=== PATIENT | female | born 1965 | race Caucasian/White ===

== ENCOUNTER 2019-05-26 12:37 | Emergency (ER) | payer BC ==
[~2019-05-26] VITALS: Ht 160 cm; Wt 95.2 kg
[~2019-05-26 12:37] MED LIST: CETI5 PO; LEVSOD75 PO; NASAL SPRAY30 ML INH; OMEP20ER PO; TERB24TC TOP; TOLT4 PO; [UNRECOGNIZED DRUG - OTHER]
[2019-05-26 13:19] LABS: BASOPHILS ABSOLUTE AUTO 0.03 K/mm3 (0.00-0.23); BASOPHILS PERCENT AUTO 0 % (0-2); EOSINOPHILS ABSOLUTE AUTO 0.01 K/mm3 (0.00-0.68); EOSINOPHILS PERCENT AUTO 0 % (0-6); Hemoglobin 14.1 g/dL (11.5-16.0); IMMATURE GRAN ABSOLUTE AUTO 0.02 K/mm3 (0.00-0.10); IMMATURE GRAN PERCENT AUTO 0 % (0-1); LYMPHOCYTES ABSOLUTE AUTO 1.97 K/mm3 (0.84-5.20); LYMPHOCYTES PERCENT AUTO 22 % (21-46); MONOCYTES ABSOLUTE AUTO 0.58 K/mm3 (0.16-1.47); MONOCYTES PERCENT AUTO 7 % (4-13); Mean Corpuscular HGB 31.3 pg (26.0-34.0); Mean Corpuscular HGB Conc 32.8 g/dL (31.5-36.5); Mean Corpuscular Volume 96 fL (80-100); Mean Platelet Volume 10.9 fL (9.1-12.4); NEUTROPHILS ABSOLUTE AUTO 6.29 K/mm3 (1.96-9.15); NEUTROPHILS PERCENT AUTO 71 % (41-73); Platelet Count 289 K/mm3 (150-400); RDW Coefficient Variation 12.5 % (11.7-14.2); RDW Standard Deviation 43.4 fL (35.1-46.3)
[2019-05-26 13:46] LABS: Free Thyroxine 1.41 ng/dL (0.70-1.60)
[2019-05-26 13:59] LABS: Alanine Aminotransfer (ALT/SGP 36 U/L (12-78); Albumin, Blood 3.7 g/dL (3.4-5.0); Albumin/Globulin Ratio 0.9 (0.8-1.8); Alk Phos 70 U/L (50-136); Anion Gap 7 mmol/L (6-16); Aspartate Aminotrans (AST/SGOT 14 U/L (12-37); Bilirubin, Total 0.9 mg/dL (0.1-1.0); Blood Urea Nitrogen 10 mg/dL (8-24); Bun/Creatinine Ratio 14.1 (12.0-20.0); CO2, Blood 25 mmol/L (21-32); Calcium, Blood 8.9 mg/dL (8.5-10.1); Chloride, Blood 110 mmol/L (98-108); Creatinine, Blood 0.71 mg/dL (0.40-1.00); Globulin, Blood 3.9 g/dL (2.2-4.0); Glomerular Filtration Rate >60 (60-); Glucose, Blood 109 mg/dL (70-99); Sodium, Blood 142 mmol/L (136-145); Total Protein, Blood 7.6 g/dL (6.4-8.2); Triiodothyronine, Free 2.77 pg/mL (2.18-3.98)
[2019-05-26] MEDS ORDERED: Vistaril25 MG PO (16:29)
== END 2019-05-26 16:41 | disposition home or self-care (01) ==
LOC: ER 12:37
PROVIDERS: Physician Assistant
DX: F41.9 Anxiety disorder, unspecified (principal); F43.0 Acute stress reaction
CPT/HCPCS: 36415; 71046; 80053; 84439; 84443; 84481; 84484; 85025; 93005; 93010; 96374; 99284-25; J2060

== ENCOUNTER 2021-11-15 06:55 | Day surgery (SDC) | payer BC ==
[~2021-11-15] VITALS: Ht 160 cm; Wt 106.8 kg
[~2021-11-15 06:55] MED LIST changes: +ALLERCLEAR10 MG PO; +Aspir 8181 MG PO; +ESTRADIOL PO; +FLUTICASONE-SA1 EAC1 INH; +PSEUDOEPHEDRINE30 M1 PO; +Vistaril25 MG PO
[2021-11-15] MEDS ORDERED: ZYRTEC10 M1 PO (07:14)
--- NOTE | 2021-11-15 07:37 | NUR ---
Ambulatory in Day Surgery History, Chart, Medications and Allergies reviewed before start of procedure. Lungs clear anteriorly to Auscultation. Pre-Op teaching done. Pt verbalizes understanding. Patient States Post-Procedure ride home has been arranged.
--- NOTE | 2021-11-15 08:03 | NUR ---
11/15/21 0803 Ligia Dowd HISTORY,CHART, MEDICATIONS AND ALLERGIES REVIEWED BEFORE START OF PROCEDURE. PATIENT CONFIRMS NPO STATUS AND AGREES WITH SCHEDULED PROCEDURE. 3-LEAD EKG REVIEWED WITH PHYSICIAN PRIOR TO START OF PROCEDURE. MONITOR INTACT WITH CONTINUOUS PULSE OXIMETRY AND INTERMITTENT BP. SUPPLEMENTAL O2 TO BE TITRATED THROUGHOUT PROCEDURE TO MAINTAIN O2 SATURATION ABOVE 90%. PATIENT DETERMINED TO BE ASA APPROPRIATE FOR MODERATE SEDATION PRIOR TO START OF PROCEDURE BY DR. BYRD. HURRICAINE SPRAY TO OROPHARYX. Bite Block Placed.
--- NOTE | 2021-11-15 09:11 | NUR ---
PT DENIES PAIN/NAUSEA p CRAMPING. TOLERATES PO FLUIDS. IV DC'D, CATH INTACT AND PRESSURE DRESSING APPLIED. VERBALIZES AN UNDERSTANDING OF INSTRUCTIONS s QUESTIONS. DRESSES SELF s DIFFICULTY. OTD IN NAD VIA WC, ESCORTED BY ESHA MEJIA.
== END 2021-11-15 22:40 | disposition home or self-care (01) ==
LOC: ORSCMMR 06:55 → ORD 08:00 → ORSCMMR 08:00
PROVIDERS: Internal Medicine Gastroenterology
PROC: 0DB98ZX Excision of Duodenum, Via Natural or Artificial Opening Endoscopic, Diagnostic (ICD-10-PCS; principal; 2021-11-15 08:00)
PROC: 0DBK8ZX Excision of Ascending Colon, Via Natural or Artificial Opening Endoscopic, Diagnostic (ICD-10-PCS; principal; 2021-11-15 08:00)
PROC: 0DB78ZX Excision of Stomach, Pylorus, Via Natural or Artificial Opening Endoscopic, Diagnostic (ICD-10-PCS; principal; 2021-11-15 08:00)
PROC: 0DBM8ZX Excision of Descending Colon, Via Natural or Artificial Opening Endoscopic, Diagnostic (ICD-10-PCS; principal; 2021-11-15 08:00)
DX: R10.13 Epigastric pain (principal); K21.9 Gastro-esophageal reflux disease without esophagitis; K44.9 Diaphragmatic hernia without obstruction or gangrene; K29.70 Gastritis, unspecified, without bleeding; Z12.11 Encounter for screening for malignant neoplasm of colon; Z86.010 Personal history of colon polyps; D12.2 Benign neoplasm of ascending colon; D12.4 Benign neoplasm of descending colon; B96.81 Helicobacter pylori [H. pylori] as the cause of diseases classified elsewhere; Z79.899 Other long term (current) drug therapy; G47.33 Obstructive sleep apnea (adult) (pediatric); F41.8 Other specified anxiety disorders; E03.9 Hypothyroidism, unspecified; Z79.82 Long term (current) use of aspirin; E66.01 Morbid (severe) obesity due to excess calories; Z68.41 Body mass index [BMI] 40.0-44.9, adult
CPT/HCPCS: 88305; 88342; A9270; J2250; J3010; J7120

== ENCOUNTER → 2022-02-14 | Outpatient (CLI) | payer BC ==
[~2022-02-14] MED LIST changes: +ZYRTEC10 M1 PO
== END | disposition home or self-care (01) ==
LOC: LAB 07:45 → LAB SHORT 07:45
DX: K29.00 Acute gastritis without bleeding (principal)
CPT/HCPCS: 87338

== ENCOUNTER → 2022-05-09 | Outpatient (CLI) | payer BC | LOC: LAB 18:30 → LAB SHORT 18:30 | PROVIDERS: Family Medicine | DX: Z12.72 Encounter for screening for malignant neoplasm of vagina (principal); Z90.710 Acquired absence of both cervix and uterus | CPT/HCPCS: G0145 ==

== ENCOUNTER 2025-02-17 08:51 | Day surgery (SDC) | payer BC ==
[~2025-02-17] VITALS: Ht 160 cm; Wt 104.0 kg
[~2025-02-17 08:51] MED LIST changes: +HYDCHL50 PO; +Hydroxyzine HCl25 MG PO; +LEVO750 PO; +Lactated Ringer's 1,000 ML IV SCH; +Norco 5-325 Ta1 EACH PO; +Phentermine HCl15 MG PO; +SERT50 PO
[2025-02-17] MEDS ORDERED: propofoL 40 ML IV ONE (10:29)
[2025-02-17 10:38] VITALS: BP 145/91
--- NOTE | 2025-02-17 10:40 | NUR ---
Ambulatory in Day Surgery. History, Chart, Medications and Allergies reviewed before start of procedure. Lungs clear T/O to Auscultation. Patient confirms NPO status and agrees with scheduled surgery. Pre-Op teaching done. Pt verbalizes understanding. Patient States Post-Procedure ride home has been arranged.
--- NOTE | 2025-02-17 11:19 | NUR ---
02/17/25 1119 Rayna Wiggins History, Chart, Medications and Allergies reviewed before start of procedure. DR ADAIR PROVIDING ANESTHESIA
[2025-02-17 11:46] VITALS: BP 125/69
[2025-02-17 11:50] VITALS: BP 136/84
--- NOTE | 2025-02-17 12:04 | NUR ---
DISCHARGE PT A&OX4/VSS/RA/KIMBER PO CRJUICE/DENIES PAIN, IV DC'D, DC INS PROVIDED/COPY SENT, LEFT VIA WC WITH DC VOL TO GO HOME WITH , WITH ALL PERSONAL POSSESSIONS.
== END 2025-02-17 22:48 | disposition home or self-care (01) ==
LOC: ORSCMMR 08:51 → ORD 10:30 → ORSCMMR 10:30
PROVIDERS: Internal Medicine Gastroenterology
PROC: 0DBK8ZX Excision of Ascending Colon, Via Natural or Artificial Opening Endoscopic, Diagnostic (ICD-10-PCS; principal; 2025-02-17 10:30)
PROC: 0DBH8ZX Excision of Cecum, Via Natural or Artificial Opening Endoscopic, Diagnostic (ICD-10-PCS; principal; 2025-02-17 10:30)
PROC: 0DBM8ZX Excision of Descending Colon, Via Natural or Artificial Opening Endoscopic, Diagnostic (ICD-10-PCS; principal; 2025-02-17 10:30)
DX: Z12.11 Encounter for screening for malignant neoplasm of colon (principal); Z86.0101 Personal history of adenomatous and serrated colon polyps; Z90.49 Acquired absence of other specified parts of digestive tract; D12.0 Benign neoplasm of cecum; K63.5 Polyp of colon; K57.30 Diverticulosis of large intestine without perforation or abscess without bleeding; K21.9 Gastro-esophageal reflux disease without esophagitis; E66.01 Morbid (severe) obesity due to excess calories; Z68.41 Body mass index [BMI] 40.0-44.9, adult; F41.9 Anxiety disorder, unspecified; F32.A Depression, unspecified; G47.33 Obstructive sleep apnea (adult) (pediatric); E03.9 Hypothyroidism, unspecified; Z79.899 Other long term (current) drug therapy
CPT/HCPCS: 88305; J2704; J7120